=== PATIENT | female | born 1985 | race Caucasian/White ===

== ENCOUNTER → 2022-10-20 14:32 | Outpatient (CLI) | payer BC, SELFPAY | PROVIDERS: PCP Family Medicine; Visit Provider Physician Assistant Medical | DX: N39.0 Urinary tract infection, site not specified (principal) | CPT/HCPCS: 87086 ==

== ENCOUNTER → 2022-12-22 10:59 | Outpatient (CLI) | payer BC, SELFPAY ==
--- NOTE | 2022-12-22 | DI.RAD.S_ITS ---
PROCEDURE: XR DEXA AXIAL SKELETON INDICATIONS: Other osteoporosis without current pathological fracture COMPARISON: None. FINDINGS: This blank DEXA report has been sent in error by the PACS system. The correct and complete report will be forthcoming in 1-2 days. Thank you for your patience and understanding. Dictated by: Moises Horner M.D. on 12/22/2022 at 15:36 Approved by: Moises Horner M.D. on 12/22/2022 at 15:36
--- NOTE | 2022-12-22 11:26 | DI.DEXA.S_ITS ---
Bone Density Report Name: DANY SLOORIO Age: 37 Sex: Female Ethnicity: White Date of : 1985 Indication: Referring Provider: CHARLOTTE DENISE M.D. Study: Bone densitometry was performed. Exam Date: December 22, 2022 Accession number: [id number] Bone Density: Region BMD T-score Z-score Classification AP Spine(L1-L4) 0.746 -2.6 Femoral Neck (Left) 0.702 -1.1 Total Hip (Left) 0.718 -1.7 Femoral Neck (Right) 0.761 -0.5 Total Hip (Right) 0.776 -1.2 Total Hip Mean 0.747 -1.5 World Health Organization criteria for BMD impression classify patients as: Normal (T-score at or above -1.0), Osteopenia (T-score between -1.0 and -2.5), or Osteoporosis (T-score at or below -2.5). 10-year Fracture Risk(1): Major Osteoporotic Fracture 2.0% Hip Fracture 0.2% Reported Risk Factors: [place] (), Neck BMD=0.702, BMI=21.5 Input outside FRAX(R) limits. Adjusted to:Age=40 (1) FRAX(R) Version 3.08. Fracture probability calculated for an untreated patient. Fracture probability may be lower if the patient has received treatment. Impression: The patient's bone mass is below expected range for age, gender and ethnicity based on the Total Spine Z-score. The patient has an estimated ten-year risk of hip fracture of 0.2% and an estimated ten-year risk of major fracture of 2%, based on the WHO FRAX algorithm. Discussion: BONE DENSITY IS ABNORMALLY LOW FOR AGE, SEX, AND RACE. This patient's lowest Z-score is -2.0 or more below average for age, sex, and race at one or more sites. This may be due to low peak bone mass or to excessive bone loss. There may be some underlying disease or condition contributing to reduced bone mass. Further evaluation should be considered. Although there is a predictable association between low bone mass and the risk of osteoporotic fractures in untreated postmenopausal women, there are no data relating bone density and fracture risk in younger women. The ISCD position is that the diagnosis of ?low bone mass? or ?osteoporosis? should not be made on densitometric criteria alone. WHO criteria only apply to postmenopausal women. The 10-year fracture risk calculated by FRAX is less than the threshold recommended by the National Osteoporosis Foundation (NOF) for treatment for postmenopausal women, and no threshold has been established for premenopausal women. All treatment decisions require clinical judgment and consideration of individual patient factors, including patient preferences, comorbidities, previous drug use, risk factors not captured in the FRAX model (e.g., frailty, falls, vitamin D deficiency, increased bone turnover, interval significant decline in bone density) and possible under or overestimation of fracture risk by FRAX. Although pharmacologic therapy is sometimes indicated for patients with Z-scores in this range, there is little information available. A decision to treat should be based on a thorough consideration of benefits and risks. The patient should follow a healthful lifestyle (good nutrition with adequate calcium and vitamin D, and appropriate weight-bearing exercise). Follow-Up: Consider repeating this study in 2 to 3 years to reassess this patient's status, or sooner if there is some new clinical indication. Reported by: MARIA ALEJANDRA KILPATRICK M.D. on 12/22/2022 11:57:00 AM.
== END ==
PROVIDERS: PCP Family Medicine; Referring Provider Family Medicine; Visit Provider Family Medicine
DX: M81.8 Other osteoporosis without current pathological fracture (principal)
CPT/HCPCS: 77080

== ENCOUNTER → 2023-04-07 | Outpatient (CLI) | payer BC, SELFPAY ==
--- NOTE | 2023-04-07 | DI.US.S_ITS ---
PROCEDURE: US BREAST LT LIMITED COMPARISON: None. INDICATIONS: MASS IN LEFT BREAST FINDINGS: IMPRESSION: Dictated by: Francisco Horta M.D. on 04/07/2023 at 11:09 Approved by: Francisco Horta M.D. on 04/07/2023 at 11:11
--- NOTE | 2023-04-07 | DI.MG.S_ITS ---
BILATERAL DIGITAL DIAGNOSTIC MAMMOGRAM 3D/2D: 04/07/2023 CLINICAL: Baseline. Mass in the Left breast. No prior exams were available for comparison. Both breasts are extremely dense, which lowers the sensitivity of mammography (category d />75% glandular tissue). No significant masses, calcifications, or other findings are seen in either breast. IMPRESSION: INCOMPLETE: NEEDS ADDITIONAL IMAGING EVALUATION There is no abnormality seen in the left breast to correspond with the area of clinical concern, however, ultrasound is recommended. Based on the Tyrer Cuzick model (a risk assessment model) the patient's lifetime risk is 15.4% and her 10 year risk is 1.8%. According to the ACR, ACS, and NCCN guidelines, an annual breast MRI exam along with mammogram is recommended if the patient's lifetime risk is 20% or greater. This exam was interpreted at Station ID: [id number]. NOTE: For mammograms, a report in lay terms will be sent to the patient. Approximately 15% of breast malignancies will not be visualized mammographically. In the management of a palpable breast mass, a negative mammogram must not discourage biopsy of a clinically suspicious lesion. Electronically Signed By: Francisco Horta M.D. lc/:04/07/2023 11:09:26 ACR BI-RADS Category 0: Incomplete 3340F
--- NOTE | 2023-04-07 10:39 | DI.US.S_ITS ---
Patient Name: DANY SOLORIO date: 1985 Sex: F Attending Physician: Twila Indications: Date: 04/07/2023 11:11 At the request of: DAYAMI MURRAY Procedure: US breast LT limited LIMITED ULTRASOUND OF LEFT BREAST AND AXILLA: 04/07/2023 CLINICAL: Palpable left breast lump. Comparison is made to exam dated: 04/07/2023 mammogram - [facility]. Color flow and real-time ultrasound of the left breast 4 o'clock, and axilla regions were performed. Dimsa scale images of the real-time examination were reviewed. There is a 0.6 cm x 0.7 cm x 0.8 cm oval mass with a circumscribed margin in the left breast at 4 o'clock anterior depth 1 cm from the nipple. No significant abnormalities were seen sonographically in the left axilla. IMPRESSION: SUSPICIOUS OF MALIGNANCY The 0.6 cm x 0.7 cm x 0.8 cm oval mass in the left breast is suspicious of malignancy. An ultrasound guided biopsy is recommended. This correlates as palpated. No significant abnormalities were seen sonographically in the left axilla. This exam was interpreted at Station ID: [id number]. Electronically Signed By: Francisco Horta M.D. lc/:04/07/2023 11:11:25 letter sent: Biopsy Required Ultrasound BI-RADS: 4 Suspicious for malignancy
== END ==
PROVIDERS: Referring Provider Family Medicine; Visit Provider Family Medicine
DX: N63.23 Unspecified lump in the left breast, lower outer quadrant (principal); R92.2 Inconclusive mammogram; R92.343 Mammographic extreme density, bilateral breasts
CPT/HCPCS: 76642; 77066; G0279

== ENCOUNTER → 2023-05-19 08:52 | Outpatient (CLI) | payer BC, SELFPAY ==
--- NOTE | 2023-05-19 08:53 | DI.US.S_ITS ---
ULTRASOUND OF LEFT BREAST: 05/19/2023 CLINICAL: Left breast mass biopsy consult. Comparison is made to exams dated: 04/07/2023 ultrasound and 04/07/2023 mammogram - [facility]. Real-time ultrasound of the left breast was performed on the area of interest. The oval mass in the left breast at 4 o'clock anterior depth is no longer seen. IMPRESSION: PROBABLY BENIGN A follow-up ultrasound in 6 months is recommended to demonstrate stability. The results were reviewed with the patient. This exam was interpreted at Station ID: [id number]. Electronically Signed By: Lizette Mayfield M.D. fx/:05/19/2023 17:28:58 letter sent: Followup Recommended Ultrasound BI-RADS: 3 Probably benign
== END ==
PROVIDERS: PCP Family Medicine; Referring Provider Family Medicine; Visit Provider Family Medicine
DX: R92.8 Other abnormal and inconclusive findings on diagnostic imaging of breast (principal); N63.23 Unspecified lump in the left breast, lower outer quadrant
CPT/HCPCS: 76642

== ENCOUNTER → 2023-10-18 12:01 | Outpatient (CLI) | payer BC, SELFPAY ==
[2023-10-18 20:54] LABS: Estradiol, Total 142.2 pg/mL
== END ==
PROVIDERS: PCP Family Medicine; Visit Provider Family Medicine
DX: R93.7 Abnormal findings on diagnostic imaging of other parts of musculoskeletal system (principal)
CPT/HCPCS: 82670

== ENCOUNTER → 2023-12-22 10:47 | Outpatient (CLI) | payer BC, SELFPAY ==
--- NOTE | 2023-12-22 | DI.RAD.S_ITS ---
PROCEDURE: XR DEXA AXIAL SKELETON INDICATIONS: Abnormal findings on diagnostic imaging of other parts of COMPARISON: [facility], CR, XR DEXA AXIAL SKELETON, 12/22/2022, 11:26. FINDINGS: Lumbar Spine: Bone mineral density 0.723 g/cm2, T score -2.7. There is interval 3.2 percent decrease in total lumbar spine bone mineral density. Left Hip: Bone mineral density 0.792 g/cm2, T score -1.1. There is interval 10.3 percent increase in left total hip bone mineral density. Left Femoral Neck: Bone mineral density 0.6 A4 g/cm2, T score -1.2. There is interval 2.6 percent decrease in left total hip bone mineral density. Right Hip: Bone mineral density 0.813 g/cm2, T score -0.9. There is interval 4.8 percent increase in total right hip bone mineral density. Right Femoral Neck: Bone mineral density 0.689 g/cm2, T score -1.2. There is interval 9.4 percent decrease in right femoral neck bone mineral density. Fracture Risk Calculation (when applicable): 10-year fracture risk of a major osteoporotic fracture 2 percent and of a hip fracture 0.2 percent. (T score greater or equal to -1.0 to: NORMAL) (T score from -1.1 to -2.4: OSTEOPENIA) (T score less than or equal to -2.5: OSTEOPOROSIS) IMPRESSION: Osteoporosis. Follow-up guidelines as follows: Osteoporosis: Consider a repeat DEXA and Vertebral Fracture Assessment (VFA) exam in 2 years or sooner if medically necessary, to reassess this patient's status. Osteopenia: Consider a repeat DEXA in 2-3 years to reassess this patient's status, or if there is a new clinical indication. Normal: Consider a repeat DEXA in 5 years or sooner, or if there is a new clinical indication. All treatment decisions require clinical judgment and consideration of individual patient factors, including patient preferences, comorbidities, previous drug use, risk factors not captured in the FRAX model (e.g., frailty, falls, vitamin D deficiency, increased bone turnover, interval significant decline in bone density ) and possible under- or over-estimation of fracture risk by FRAX. In addition, the NOF Guide recommends that FDA-approved medical therapies be considered in postmenopausal women and men age >= 50 years with a: * Hip or vertebral (clinical or morphometric) fracture * T-score of <=-2.5 at the spine or hip * Ten-year fracture probability by FRAX of >= 3% for hip fracture or >=20% for major osteoporotic fracture. People with diagnosed cases of osteoporosis or at high risk for fracture should have regular bone mineral density tests. For patients eligible for Medicare, routine testing is allowed once every 2 years. The testing frequency can be increased to one year for patients who have rapidly progressing disease, those who are receiving or discontinuing medical therapy to restore bone mass, or have additional risk factors. Dictated by: Juventino Garcia M.D. on 12/22/2023 at 17:10 Approved by: Juventino Garcia M.D. on 12/22/2023 at 17:12
== END ==
LOC: RAD 10:48
PROVIDERS: PCP Family Medicine; Referring Provider Family Medicine; Visit Provider Family Medicine
DX: M81.0 Age-related osteoporosis without current pathological fracture (principal); R93.7 Abnormal findings on diagnostic imaging of other parts of musculoskeletal system; Z87.442 Personal history of urinary calculi
CPT/HCPCS: 77080

== ENCOUNTER → 2024-02-24 10:31 | Outpatient (CLI) | payer BC, SELFPAY ==
[2024-02-24 21:04] LABS: Add Manual Diff / Slide Review NO; Basophils Absolute Auto 100 /uL (0-100); Basophils Percent Auto 0.7 % (0-2); Eosinophils Absolute Auto 100 /uL (0-450); Eosinophils Percent Auto 1.1 % (2-4); Hemoglobin 11.9 g/dL (12.0-16.0); Lymphocytes Absolute Auto 1400 /uL (1100-4500); Lymphocytes Percent Auto 14.7 % (25-40); Mean Corpuscular Hemoglobin 30.8 PG (26-34); Mean Corpuscular Volume 87.9 fL (80-100); Monocytes Absolute Auto 800 /uL (0-900); Monocytes Percent Auto 8.5 % (3-14); Neutrophils Absolute Auto 7200 /uL (1500-7000); Platelet Count 570 X10^3/uL (150-400); Red Blood Cell Count 3.86 X10^6/uL (4.0-5.2); Red Cell Distribution Width 12.9 % (11.6-14.8); White Blood Cell Count 9.7 X10^3/uL (4.5-11.0)
== END ==
PROVIDERS: PCP Family Medicine; Visit Provider Physician Assistant Medical
DX: J06.9 Acute upper respiratory infection, unspecified (principal); R53.83 Other fatigue
CPT/HCPCS: 85025

== ENCOUNTER → 2024-03-16 06:45 | Outpatient (CLI) | payer BC, SELFPAY | PROVIDERS: PCP Family Medicine; Visit Provider Family Medicine | DX: B71.9 Cestode infection, unspecified (principal) | CPT/HCPCS: 87177 ==